=== PATIENT | male | born 1945 | race Caucasian/White ===

== ENCOUNTER → 2017-05-06 | Outpatient (CLI) | payer MEDICARE, BC ==
[~2017-05-06] MED LIST: ASPI-41 PO; CLIN-5 PO; DAPA5TAB PO; FENO145T38 PO; FURO-150 PO; GLIM1TAB46 PO; LINA5TAB4 PO; METF500T PO; METO100T7 PO; PRED5TAB PO; ROSU40TA PO; VERA180T7 PO
[2017-05-06 09:23] LABS: POTASSIUM 5.2 MMOL/L (3.5-5.1); TOTAL CARBON DIOXIDE 29.2 MMOL/L (24-32)
== END ==
LOC: LAB 08:09
PROVIDERS: ATTEND Specialist
DX: I10 Essential (primary) hypertension (principal); E78.2 Mixed hyperlipidemia; E11.65 Type 2 diabetes mellitus with hyperglycemia; Z85.828 Personal history of other malignant neoplasm of skin
CPT/HCPCS: 36415; 82374; 82435; 84132; 84295

== ENCOUNTER 2022-11-15 13:39 | Outpatient (CLI) | payer OTHER ==
[~2022-11-15 13:39] MED LIST changes: +AMA1T PO; -CLIN-5 PO; +CLIN-91 PO; -GLIM1TAB46 PO; +VERA180T59 PO; -VERA180T7 PO
== END 2022-11-15 23:59 | disposition home or self-care (01) ==
LOC: CARD DIAG 13:39
PROVIDERS: ATTEND Chiropractor
DX: I08.8 Other rheumatic multiple valve diseases (principal); I25.9 Chronic ischemic heart disease, unspecified; I25.10 Atherosclerotic heart disease of native coronary artery without angina pectoris
CPT/HCPCS: 93306